=== PATIENT | male | born 1965 | race Caucasian/White ===

== ENCOUNTER 2024-06-22 16:53 | Emergency (ER) | payer SELFPAY ==
[2024-06-22 16:55] VITALS: BP 0/0; PULSE 0; RESP 0; O2SAT 90
--- NOTE | 2024-06-22 17:20 | ED_ITS ---
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 Patient was in full arrest with a rhythm of PEA and patient arrived at the ER [id number] 5 and CPR was in progress since 10/04 6:00 p.m., patient during assessment was continually in pulseless electrical activity. CPR in progress patient intubated and oxygen given. Patient received 6 Epi in total with 1 atropine. Patient's pupils were fixed and dilated. MD complaint: collapsed during rest Onset (ago): minute(s) Time: 16:36 Place: other Bystander CPR performed: Yes AED applied by bystander/customer relations specialist: Yes ROSC in the field: No Associated injuries: No Associated symptoms: shortness of breath Known history of: CAD Treatments prior to arrival: intubation, chest compressions, defibrillated shocks # and epinephrine mgs # Related Data Home Medications ?Medication ?Instructions ?Recorded ?Confirmed ?Last Taken ?Type Unable to Obtain Home Medications 06/22/24 06/22/24 Unknown History Allergies Allergy/AdvReac Type Severity Reaction Status Date / Time Unable to Assess Allergy Verified 06/22/24 17:29 Review of Systems Review of Systems: All systems reviewed & are unremarkable except as noted in HPI and below PMFSH Past Medical History Medical History CAD (coronary artery disease) Exam Const: General: ill appearing Nutritional Appearance: obese Eyes: Other: pupils fixed and dilated bilaterally Chest: Chest palpation & inspection: abnormal inspection of the chest Resp: Other: absent lung sounds Cardio: Rhythm: abnormal rhythm Skin: Wounds: wounds noted Extrem: General: edema Course Course Emergency Course: patient in full cardiac arrest with a pulses electrical activity rhythm was given 6 epinephrine and 1 atropine patient was intubated and had an IO in place the. Patient had a witnessed cardiac arrest at approximately 4:36 p.m. and CPR in progress upon arrival to the emergency department. Patient after receiving epinephrine and atropine had fixed and dilated pupils with absent breath sounds and patient code was discontinued at 5:15 p.m.. Critical Care Time Critical Care Time Critical Care Time: Yes Total Critical Care Time: 40 Discharge Plan Discharge Clinical Impression: Cardiac arrest Patient Disposition: Condition: Terminal Patient Language: [place] Follow-up/Referrals: UNKNOWN,DOCTOR [Primary Care Provider] - Time of Disposition: 17:32
== END 2024-06-22 18:20 | disposition expired ==
PROVIDERS: Emergency Provider Emergency Medicine
DX: I46.9 Cardiac arrest, cause unspecified (principal); I25.10 Atherosclerotic heart disease of native coronary artery without angina pectoris
CPT/HCPCS: 92950; 99285; J0171; J0461; J7030